=== PATIENT | female | born 1950 | race Native Hawaiian/Other Pacific Islander ===

== ENCOUNTER 2019-04-19 15:03 | Emergency (ER) | payer OTHER ==
[~2019-04-19] VITALS: Ht 160 cm; Wt 83.9 kg
[2019-04-19 15:08] VITALS: BP 158/92; TEMP 99.1
[2019-04-19 15:42] LABS: PLATELET COUNT 269 K/uL (152-353)
[2019-04-19 15:55] LABS: POTASSIUM 4.4 mmol/L (3.6-5.2)
[2019-04-19] MEDS ORDERED: AMLO2.5T PO (17:59)
[2019-04-19] MEDS ORDERED: ASPIRIN/ENTERIC81 MG PO (18:02)
[2019-04-19] MEDS ORDERED: CITALOPRAM20 M1 PO (18:03)
[2019-04-19] MEDS ORDERED: ALLEGRA ALRG180 M1 PO (18:05)
[2019-04-19] MEDS ORDERED: FLONASE AL50 MCG/ACT INH (18:08)
[2019-04-19] MEDS ORDERED: B-121000 MC4 PO (18:10)
[2019-04-19] MEDS ORDERED: VITAMIN D35000 UNI6 PO (18:12)
[2019-04-19] MEDS ORDERED: CELEBREX200 MG PO (18:13)
[2019-04-19] MEDS ORDERED: PANTOPRAZOLE 40MG TA PO (18:16)
[2019-04-19] MEDS ORDERED: BREO ELLIPTA 101 INH INH (18:16)
[2019-04-19] MEDS ORDERED: ALBUSOL INH (18:25)
[2019-04-19] MEDS ORDERED: VENTOLIN HFA INH (18:28)
[2019-04-19] MEDS ORDERED: BENZONATATE100 MG PO (18:29)
[2019-04-19] MEDS ORDERED: SIMV20TA2 PO (18:30)
== END 2019-04-19 17:02 | disposition other institution (70) ==
LOC: ED 15:03
PROVIDERS: Emergency Medicine
DX: F03.91 Unspecified dementia, unspecified severity, with behavioral disturbance (principal); Z04.6 Encounter for general psychiatric examination, requested by authority
CPT/HCPCS: 80053; 81000; 85027; 93005; 99285

== ENCOUNTER 2019-07-05 16:25 | Emergency (ER) | payer OTHER ==
[~2019-07-05] VITALS: Ht 160 cm; Wt 117.5 kg
[~2019-07-05 16:25] MED LIST: ALBUSOL INH; ALLEGRA ALRG180 M1 PO; AMLO2.5T PO; ARIPIPRAZOLE10 MG PO; ASPIRIN/ENTERIC81 MG PO; B-121000 MC4 PO; BENZONATATE100 MG PO; BREO ELLIPTA 101 INH INH; BUPR150T PO; CELEBREX200 MG PO; CITA20TA2 PO; CITALOPRAM20 M1 PO; CYAN10009 SC; DONE5TAB PO; FLONASE AL50 MCG/ACT INH; PANTOPRAZOLE 40MG TA PO; SIMV20TA2 PO; VENTOLIN HFA INH; VITAMIN D35000 UNI6 PO
[2019-07-05 16:48] LABS: PLATELET COUNT 226 K/uL (152-353)
[2019-07-05 16:53] LABS: POTASSIUM 4.4 mmol/L (3.6-5.2); SODIUM 137 mmol/L (136-145)
[2019-07-05 17:20] VITALS: BP 131/72; TEMP 98.9
[2019-07-05] MEDS ORDERED: BUPROPION HYDR150 M1 PO (18:01)
[2019-07-05] MEDS ORDERED: CITALOPRAM20 M1 PO (18:02)
[2019-07-05] MEDS ORDERED: B-12 COMPL1000 MCG/M IM (18:05)
[2019-07-05] MEDS ORDERED: AMLO2.5T PO (18:05)
[2019-07-05] MEDS ORDERED: ADULT ASPIRIN R81 MG PO (18:06)
[2019-07-05] MEDS ORDERED: ALLEGRA ALRG180 M1 PO (18:07)
[2019-07-05] MEDS ORDERED: VITAMIN D35000 UNI1 PO (18:09)
[2019-07-05] MEDS ORDERED: FLONASE AL50 MCG/ACT NAS (18:09)
[2019-07-05] MEDS ORDERED: BREO ELLIPTA 101 INH INH (18:10)
[2019-07-05] MEDS ORDERED: CELEBREX200 MG PO (18:10)
[2019-07-05] MEDS ORDERED: DONE5TAB PO (18:11)
[2019-07-05] MEDS ORDERED: ALBU90AE13 INH (18:12)
[2019-07-05] MEDS ORDERED: IPRATROPIUM/ INH (18:13)
[2019-07-05] MEDS ORDERED: PANTOPRAZOLE 40MG TA PO (18:14)
[2019-07-05] MEDS ORDERED: BENZONATATE100 MG PO (18:14)
[2019-07-05] MEDS ORDERED: SIMV20TA2 PO (18:15)
[2019-07-05] MEDS ORDERED: ABILIFY MYCITE10 MG PO (18:15)
[2019-07-17] MEDS ORDERED: BUPR150T PO (19:43)
[2019-07-17] MEDS ORDERED: ESCI10TA PO (19:44)
[2019-07-17] MEDS ORDERED: DULO30CA PO (19:48)
[2019-07-17] MEDS ORDERED: DONE5TAB PO (19:50)
[2019-08-06] MEDS ORDERED: DULO30CA PO (17:14)
[2019-08-06] MEDS ORDERED: DOCU100C10 PO (17:15)
== END 2019-07-05 17:20 | disposition other institution (70) ==
LOC: ED 16:25
PROVIDERS: Emergency Medicine
DX: F32.89 Other specified depressive episodes (principal); Z04.6 Encounter for general psychiatric examination, requested by authority
CPT/HCPCS: 80053; 85027; 93005; 99285

== ENCOUNTER 2019-07-24 18:05 | Emergency (ER) | payer OTHER ==
[~2019-07-24] VITALS: Ht 160 cm; Wt 117.5 kg
[~2019-07-24 18:05] MED LIST changes: +ABILIFY MYCITE10 MG PO; +ADULT ASPIRIN R81 MG PO; +ALBU90AE13 INH; +B-12 COMPL1000 MCG/M IM; +BUPROPION HYDR150 M1 PO; +DULO30CA PO; +ESCI10TA PO; +FLONASE AL50 MCG/ACT NAS; +IPRATROPIUM/ INH; +VITAMIN D35000 UNI1 PO
[2019-07-24 18:33] LABS: PLATELET COUNT 249 K/uL (152-353)
[2019-07-24 18:46] LABS: POTASSIUM 4.3 mmol/L (3.6-5.2)
[2019-07-24 19:30] VITALS: BP 141/65; TEMP 97.7
[2019-07-24] MEDS ORDERED: DULO30CA PO (20:11)
[2019-07-24] MEDS ORDERED: LEXAPRO20 MG PO (20:23)
[2019-08-06] MEDS ORDERED: DULO30CA PO (17:14)
[2019-08-06] MEDS ORDERED: DOCU100C10 PO (17:15)
== END 2019-07-24 19:30 | disposition other institution (70) ==
LOC: ED 18:08
PROVIDERS: Emergency Medicine
DX: Z00.8 Encounter for other general examination (principal); I10 Essential (primary) hypertension
CPT/HCPCS: 36415; 80053; 85027; 93005; 99285